=== PATIENT | female | born 1995 | race Caucasian/White ===

== ENCOUNTER → 2020-03-23 | Outpatient (CLI) | payer OTHER ==
[~2020-03-23] MED LIST: BCP PO; ONDANSETRON HCL4 M2 PO; OXYCODONE HCL 55 MG PO
== END ==
LOC: LAB 11:44
PROVIDERS: ATTEND Surgery
DX: R50.9 Fever, unspecified (principal); Z20.828 Contact with and (suspected) exposure to other viral communicable diseases